=== PATIENT | female | born 1960 | race Caucasian/White ===

== ENCOUNTER 2018-07-09 22:25 | Emergency (ER) | payer MEDICAID ==
[~2018-07-09] VITALS: Ht 160 cm; Wt 69.0 kg
[2018-07-10] MEDS ORDERED: TETANUS, DIPHTHERIA, PERTUSSIS VAC/PF 0.5ML (>7YR OLD) IM ONE (01:30)
[2018-07-10] MEDS ORDERED: IBUPROFEN 600MG TABLET PO ONE (01:30)
[2018-07-10] MEDS ORDERED: BACITRACIN ZINC OINT UDPKT TOP ONE (01:30)
[2018-07-10] MEDS ORDERED: LIDOCAINE HCL/PF 1% 10 MG/ML 5ML VIAL IJ ONE (01:30)
[2018-07-10] MEDS ORDERED: AMOXICILLIN/POTASSIUM CLAVULANATE 875/125MG TAB PO ONE (03:00)
[2018-07-10 03:32] VITALS: BP 158/99
== END 2018-07-10 03:35 | disposition home or self-care (01) ==
LOC: ER 22:25
DX: S02.2XXA Fracture of nasal bones, initial encounter for closed fracture (principal); W54.0XXA Bitten by dog, initial encounter; Y93.89 Activity, other specified; Y92.89 Other specified places as the place of occurrence of the external cause; Y99.8 Other external cause status; Z98.890 Other specified postprocedural states
CPT/HCPCS: 70486; 90471; 90715; 99284; Z7610; J3490